=== PATIENT | male | born 1980 | race Caucasian/White ===

== ENCOUNTER 2020-05-04 15:46 | Outpatient (CLI) | payer BC ==
--- NOTE | 2020-05-04 16:23 | RAD ---
XR Hand Rt 3 View STANDARD HISTORY: Injury, right thumb pain FINDINGS: No fracture or dislocation is identified.
== END 2020-05-04 15:47 | disposition home or self-care (01) ==
LOC: SCSRAD 15:46
PROVIDERS: ATTEND Family Medicine
DX: M79.644 Pain in right finger(s) (principal)